=== PATIENT | female | born 1970 | race Caucasian/White ===

== ENCOUNTER → 2018-07-13 | Outpatient (CLI) | payer OTHER ==
--- NOTE | 2018-07-13 13:50 | RAD ---
Barium esophagram History: History of thyroid cancer, liquid dysphagia Comparison: None. Findings: Manager Contract radiograph of the chest was performed. There is no infiltrate or pleural fluid. Heart size is within normal limits. Barium esophagram was performed. Esophageal motility and caliber are within normal limits. No significant stricture or significant mucosal abnormality was identified. There are clips of the inferior neck compatible with previous thyroidectomy. Fluoroscopy time: 0.8 minutes, 191 images Impression: 1. No significant abnormality was identified. Electronically signed by: Fernando Mercedes MD (07/13/2018 1:46 PM) [id number]
== END | disposition home or self-care (01) ==
LOC: RAD 08:31
PROVIDERS: ATTEND Internal Medicine Gastroenterology
DX: R47.02 Dysphasia (principal); Z85.850 Personal history of malignant neoplasm of thyroid
CPT/HCPCS: 74220

== ENCOUNTER → 2018-07-28 | Outpatient (CLI) | payer OTHER ==
--- NOTE | 2018-07-28 11:12 | RAD ---
PQRS Compliance Statement: One or more of the following individualized dose reduction techniques were utilized for this examination: 1. Automated exposure control 2. Adjustment of the mA and/or kV according to patient size 3. Use of iterative reconstruction technique Neck CT with contrast: 07/28/2018 Indication: History of thyroid cancer. Dysphagia. Thyroidectomy February 2018.. Technique: Multiple axial images were obtained through the neck following intravenous injection of contrast material. 75 mL Omnipaque 300 was administered intravenously. Comparison: None. Findings: The visualized brain parenchyma appears intact. The skull base is normal. The visualized paranasal sinuses and orbital contents are normal. The sella turcica and cavernous sinus regions appear intact. The mastoid air cells are normal. The fossa of Rosenmuller is normal. The parotid space contents and consolidation accountant space contents appear intact. The parapharyngeal spaces are normal. The submandibular and sublingual space contents appear intact. The epiglottis, aryepiglottic folds, and piriform sinuses are normal. The vallecula appears normal. There is mild asymmetric fullness of the right true cord. No definite mucosal irregularity is visualized. There is asymmetric sclerosis of the right arytenoid cartilage, which is indeterminate. Thyroid gland is surgically absent. No suspicious soft tissue abnormality is identified within this region. The carotid space contents are normal. There is no deep cervical chain adenopathy observed. The jugulodigastric regions appear intact. The perivertebral space contents are normal. The supraclavicular regions appear intact. The visualized mediastinum is normal. The visualized lungs appear intact. The visualized osseous structures are normal. Impression: 1. Status post thyroidectomy without suspicious lymphadenopathy within the cervical distribution. 2. Asymmetric fullness of the right true cord with increased mineralization of the right arytenoid cartilage. Findings may be physiologic, however further evaluation with direct visualization may be of benefit to assess for a mucosal lesion. Electronically signed by: Christina Mei MD (07/28/2018 11:09 AM) [id number]
== END | disposition home or self-care (01) ==
LOC: CT 08:41
PROVIDERS: ATTEND Internal Medicine Gastroenterology
DX: R13.10 Dysphagia, unspecified (principal); Z85.850 Personal history of malignant neoplasm of thyroid; Z98.890 Other specified postprocedural states
CPT/HCPCS: 70491